=== PATIENT | male | born 2000 | race Caucasian/White ===

== ENCOUNTER 2021-12-18 12:23 | Emergency (ER) | payer OTHER, SELFPAY ==
--- NOTE | ~2021-12-18 | XR_ITS ---
EXAMINATION: XR FINGER, LEFT CLINICAL INFORMATION: Crush injury COMPARISON: None TECHNIQUE: Frontal and lateral views of the first finger and AP hand FINDINGS: Nondisplaced horizontal subarticular fracture through the middle phalanx, nondisplaced fracture of the tuft of the distal phalanx. No dislocation. No other fractures. XR/XR finger LT min 2V IMPRESSION: Mildly displaced fractures of the distal aspect of the middle phalanx and tuft of the distal phalanx third finger.
[2021-12-18 13:12] VITALS: BP 113/63; PULSE 69; RESP 18; TEMP 37; O2SAT 99
--- NOTE | 2021-12-18 13:28 | ED.EXTPRO ---
HPI - Extremity Problem General Chief complaint: Extremity Injury, Upper Stated complaint: finger inj Time Seen by Provider: 12/18/21 13:28 Source: patient Mode of arrival: ambulatory Limitations: no limitations History of Present Illness HPI Narrative: 21-year-old male presents to the ER for evaluation of a left middle finger injury sustained earlier this morning. Patient reports he was playing with his 5-year-old niece, stacking rocks when she knocked the rock pile over and rocks fell onto his left middle finger. He had immediate pain, swelling and bruising to the distal portion of the finger. He has pain with bending at the D IP. He denies any weakness, numbness, tingling. He is right-hand dominant. He works in construction. He denies any other injuries. On the dorsal aspect of the hand there is a small scrape but no open lacerations. MD Complaint: joint swelling and joint pain Onset (ago): hour(s) Pain Consistency: constant Location: left and upper extremity Severity scale (1-10): 6 Quality: aching Radiation: proximal Relieving factors: cold therapy and elevation Exacerbating factors: range of motion and palpation Associated symptoms: denies other symptoms Related Data Previous Rx's Medication Instructions Recorded ibuprofen 600 mg tablet 600 mg PO Q8H PRN pain #14 tabs 12/18/21 Allergies Allergy/AdvReac Type Severity Reaction Status Date / Time Penicillins Allergy Rash Verified 12/18/21 13:12 Review of Systems Review of Systems: Constitutional: No Fever, No Chills Cardiovascular: No Chest Pain, No SOB Respiratory: No Cough, No Sputum Gastrointestinal: No Nausea, No Vomiting, No Diarrhea, No abdominal Pain Musculoskeletal: + joint pain, No Myalgias Skin: + Skin Lesions, No rash Neuro: No Weakness, No Numbness Heme/Lymph: + Bruising, No Lymphadenopathy PMFSH Social History Social History Advance Directives: No Advance Directives Information Provided: No Physical Exam Vital Signs: Vital Signs: Last Vital Signs Temp 98.6 F 12/18/21 13:12 Pulse 69 12/18/21 13:12 Resp 18 12/18/21 13:12 BP 113/63 12/18/21 13:12 Pulse Ox 99 12/18/21 13:12 O2 Del Method 12/18/21 13:12 BMI result Body Mass Index 20.0 Appearance: Alert. Oriented X3. No acute distress. HEENT: normal inspection CVS: Normal heart rate and rhythm. Pulses normal. Respiratory: No respiratory distress. Skin: Skin warm and dry. Normal skin color. Normal skin turgor. No rashes. Extremities: Left middle finger with generalized swelling and tenderness of the distal left middle finger. The anterior aspect of the pulp with visible ecchymosis and tenderness. Pain with flexion of the D IP, limited range of motion due to pain. Normal range of motion of the PIP and MCP. Cap refills less than 3 seconds. No subungual hematoma. No open lacerations. On the dorsal aspect of the finger there is a superficial abrasion between the D IP in the PIP. No other injuries. Neuro: Oriented X 3. No motor deficit. No sensory deficit. Course Course Course Narrative: 21-year-old male presents to the ER for evaluation of left middle finger crush injury with rocks earlier this morning. Exam reveals ecchymosis, swelling, tenderness of the distal portion of the left middle finger. X-ray is showing Mildly displaced fractures of the distal aspect of the middle phalanx and tuft of the distal phalanx third finger. We discussed the diagnosis and management. XR reviewed Finger placed in a finger splint and support with an Josh wrap. He was given a Tdap in Motrin. He will follow-up with orthopedics. Workup provided. He is stable for discharge home with outpatient follow-up. Discharge Plan Discharge Clinical Impression: Finger fracture, left Patient Disposition: Home, Self-Care Instructions: Finger Fracture (ED) Additional Instructions: Your x-ray showed - Mildly displaced fractures of the distal aspect of the middle phalanx and tuft of the distal phalanx third finger. Wear the provided finger splint for immobilization and comfort. Ice and elevate her finger when possible. Take the prescribed anti-inflammatory as needed for pain and swelling. Recommend following up with warhead maintenance specialist, name and number below. Prescriptions: New ibuprofen 600 mg tablet 600 mg PO Q8H PRN (Reason: pain) Qty: 14 0RF Referrals: [facility] [place] Group] (Mildly displaced fractures of the distal aspect of the middle phalanx and tuft of the distal phalanx third finger.) Stand Alone Forms: Work/School Release Interventions: ED Discharge Assessment Last Done: 12/18/21 14:26 Discharge Date/Time: 12/18/21 14:28
[2021-12-18] MEDS: Ibuprofen 600 MG TABLET PO (14:13)
[2021-12-18] MEDS: Diphth,Pertus(ACell),Tet Adult 0.5 ML SYRINGE IM (14:13)
== END 2021-12-18 14:28 | disposition home or self-care (01) ==
PROVIDERS: Emergency Provider Emergency Medicine
DX: S62.623A Displaced fracture of middle phalanx of left middle finger, initial encounter for closed fracture (principal); W20.0XXA Struck by falling object in cave-in, initial encounter; Y93.H3 Activity, building and construction; Y92.61 Building [any] under construction as the place of occurrence of the external cause; Y99.0 Civilian activity done for income or pay
CPT/HCPCS: 29130; 73140; 90471; 90715; 99283; 99284

== ENCOUNTER 2021-12-27 08:16 | Outpatient (REF) | payer OTHER, SELFPAY ==
--- NOTE | ~2021-12-27 | XR_ITS ---
EXAMINATION: XR HAND, LEFT CLINICAL INFORMATION: Pain left hand. COMPARISON: None. TECHNIQUE: PA, lateral, and oblique views of the left hand. FINDINGS: There is minimally displaced fracture phalangeal tuft 3rd digit. Also visualized is a minimally displaced transverse fracture distal mid phalanx 3rd digit. No additional fracture seen. XR/XR hand LT min 3V IMPRESSION: Minimally displaced fracture phalangeal tuft and distal mid phalanx 3rd digit. No callus formation is seen yet. No major change since previous study 12/18/2021.
== END 2021-12-27 08:17 | disposition home or self-care (01) ==
LOC: HO.HOSX 08:16
PROVIDERS: Visit Provider Physician Assistant
DX: M79.642 Pain in left hand (principal); S62.633A Displaced fracture of distal phalanx of left middle finger, initial encounter for closed fracture; W20.8XXA Other cause of strike by thrown, projected or falling object, initial encounter; Y93.9 Activity, unspecified; Y92.9 Unspecified place or not applicable; Y99.8 Other external cause status
CPT/HCPCS: 73130; 99202

== ENCOUNTER 2022-01-31 06:04 | Outpatient (REF) | payer OTHER, SELFPAY | END 2022-01-31 06:05 | disposition home or self-care (01) | LOC: HO.HOSX 06:04 | PROVIDERS: Visit Provider Physician Assistant | DX: Z13.89 Encounter for screening for other disorder (principal) ==